=== PATIENT | male | born 1955 | race American Indian/Alaskan Native ===

== ENCOUNTER 2022-03-14 05:54 | Emergency (ER) | payer MEDICARE ==
[2022-03-14 06:35] VITALS: BP 103/63
--- NOTE | 2022-03-14 09:33 | Emergency Department Report ---
HPI - General Chief Complaint: Dyspnea/Respdistress PUI?: No Time Seen by Provider: 03/14/22 06:56 - HPI HPI: 67yo morbidly obese M w/self reported hx of CHF (pt does not know EF, does not know name of sustainability coach), HTN, bibems for sob. Per my discussion with EMS personnel, the pt had left [facility] from a local hospital 3 days ago after having presented there for sob. Upon their arrival, the pt was satting at 84% RA. He was placed on a nonrebreather with oxygen saturation improving to 96%. They did not provide the pt with any medications prior to arrival. Pt c/o several days of sob, but denies chest pain cough or URI symptoms abdominal pain lightheadedness dizziness tingling or loss of consciousness. Patient reports he was seen at [facility] 1 month ago "from a lung sticking to my chest wall." When asked to clarify further, the patient became verbally combative, stating "you know what? Am sick of you asking questions. Go look in my chart. You have all of this information." I informed the pt that we do not have a documented history of his medical conditions, nor do we have access to his medical records from [place] at this time, as we do not share the same electronic health record system. The pt then cut this provider off, stating "you know what? get the hell away from my bed! Let me get out of here! I'm sick of coming to the hospital and ya'll asking me questions. Let me go. if i fall out, I fall out. I'll take that on myself. But let me go. I don't want you touching me! Take these things off my chest and me get out of here." concrete engineer, and pt's RN Debra, informed of my discussion with pt and the pt's demand to leave [facility]. ED Past Medical Hx - Past Medical History Previous Medical History?: Yes Hx Hypertension: Yes - Surgical History Past Surgical History?: No - Social History Smoking Status: Never Smoker ED Review of Systems ROS: Stated complaint: JUMA Other details as noted in HPI Comment: All other systems reviewed and negative Physical Exam - Physical Exam Vital Signs: Vital Signs 03/14/22 06:34 Pulse Rate 68 Respiratory 15 Rate Blood Pressure 103/63 [Right] O2 Sat by Pulse 100 Oximetry General: Gen: pt is well appearing, mild resp distress, speaking in full sentences, no drooling no stridor, nontoxic-appearing, tolerating oral secretions without difficulty HEENT: Normocephalic atraumatic pupils equally round and reactive to light extraocular muscles intact sclera anicteric Neck: pt refuses examination CVS:pt refuses examination Pulmonary: pt refuses examination Abdomen:pt refuses examination : Deferred Extremities: No cyanosis no clubbing no edema, intact distal peripheral pulses, Integumentary: pt has chronic appearing scars to b/l LE (pt states this is due to an "accident in 1998" which resulted in surgical skin graftin); no petechia no purpura no abscess no lacerations no evidence of trauma no evidence of infection Neuro: Patient is awake alert and oriented to person place time situation, mentating well, cranial nerves II through XII intact, no focal neurodeficits, sensation grossly tact; Aox4, mentating well, GCS 15 Psych: agitated, angry affect; minimally redirectable; ED Course Vital Signs 03/14/22 06:34 Pulse Rate 68 Respiratory 15 Rate Blood Pressure 103/63 [Right] O2 Sat by Pulse 100 Oximetry ED Medical Decision Making - Medical Decision Making 67-year-old morbidly obese male with self-reported history of hypertension, congestive heart failure, brought in by EMS for hypoxia and shortness of breath. Patient noted to be tachypneic here. The patient is awake alert and oriented to person place time and situation, is mentating well, and per my clinical assessment he has decision-making capacity. He is not altered or in any extremis at the time of assessment. He does not appear to be under the influence of mood altering substances. He is not in extremis. Pt has refused a dedicated physical exam, and has told this provider "i don't want you to touch me. Get out of here! I'm going to [place] where they know me." Pt informed that while we are not [facility], we we are able to obtain his medical records to help better understand what care has been provided for him in the past by that healthcare system. Pt encouraged multiple times to remain in the ER for further workup and dedicated physical examination, as he is hypoxic (oxygen saturation on 3L of oxygen via NC is 86%). I also informed him that I believe he will need to be admitted to the hospital. The pt verbalizes that he understands. He remains in having decision making capacity but, but he continues to demand to leave AGAINST MEDICAL ADVICE, refusing any further work-up including any attempts to further manage his hypoxia. Risks of leaving AGAINST MEDICAL ADVICE were discussed with the patient. Patient informed that included but were not limited to. Worsening low oxygen, respiratory arrest, need for intubation, need for placement on a ventilator, cardiac arrest, heart failure, electrolyte abnormality, periods of low to no oxygen to brain, anoxic brain injury, need for tracheostomy, paralysis, chronic bedbound state, multiorgan failure, permanent disability, and . Patient is able to explain these risk back to me in his own words. He does not appear to be confused or under the influence of any mood altering substances. His decision-making capacity remains intact. Nevertheless the patient refuses and demands to leave AGAINST MEDICAL ADVICE. Pt left AMA. Critical Care Time: No Critical care attestation.: If time is entered above; I have spent that time in minutes in the direct care of this critically ill patient, excluding procedure time. ED Disposition Clinical Impression: Dyspnea, Left against medical advice, Hypoxia Disposition: 07 LEFT AGAINST MEDICAL ADVICE Is pt being admited?: No Does the pt Need Aspirin: No Condition: Stable Instructions: Shortness of Breath, Adult, [id number] Additional Instructions: See a doctor as soon as possible to undergo further evaluation of your medical problems. This is important. Go to the nearest emergency department soon as possible if your symptoms persist worsen or if any other new worrisome symptoms develop Referrals: BEAU ORTIZ MD [Primary Care Provider] - 3-5 Days
== END 2022-03-14 10:34 | disposition left against medical advice (07) ==
LOC: ED 05:54
DX: R06.00 Dyspnea, unspecified (principal); R09.02 Hypoxemia; I10 Essential (primary) hypertension
CPT/HCPCS: 99283